=== PATIENT | male | born 1970 ===

== ENCOUNTER 2018-02-05 09:38 | Inpatient (IN) | payer OTHER ==
[2018-02-05] MEDS ORDERED: Sodium Chloride 0.9% 500 ML IV ONE ×2 (10:09→10:35)
--- NOTE | 2018-02-05 10:13 | C.PDOC ---
History Of Present Illness 47-year-old male presents to the ED for evaluation of right upper quadrant pain associated with nausea and vomiting that started 1 day ago. Denies fever, diarrhea, hematemesis, and any other associated symptoms. Time Seen by Provider: 02/05/18 09:58 Chief Complaint (Nursing): Abdominal Pain History Per: Patient History/Exam Limitations: no limitations Onset/Duration Of Symptoms: Days (x1) Current Symptoms Are (Timing): Still Present Location Of Pain/Discomfort: RUQ Radiation Of Pain To:: None Recent travel outside of the [place]: No Past Medical History Reviewed: Historical Data, Nursing Documentation, Vital Signs Vital Signs: Last Vital Signs Temp 97.6 F 02/05/18 09:40 Pulse 65 02/05/18 09:40 Resp 21 02/05/18 09:40 BP 159/91 H 02/05/18 09:40 Pulse Ox 100 02/05/18 09:40 - Medical History PMH: Asthma Surgical History: No Surg Hx Family History: States: Unknown Family Hx - Social History Hx Alcohol Use: Yes (WEEKEND) Hx Substance Use: No - Immunization History Hx Tetanus Toxoid Vaccination: No Hx Influenza Vaccination: No Hx Pneumococcal Vaccination: No Review Of Systems Except As Marked, All Systems Reviewed And Found Negative. Constitutional: Negative for: Fever Gastrointestinal: Positive for: Nausea, Vomiting, Abdominal Pain (RUQ.). Nega tive for: Diarrhea Physical Exam - Physical Exam Appears: Well, Non-toxic, No Acute Distress Skin: Normal Color, Warm, Dry Head: Atraumatic, Normacephalic Eye(s): bilateral: Normal Inspection Neck: Normal ROM, Supple Chest: Symmetrical, No Deformity Cardiovascular: Rhythm Regular, No Murmur Respiratory: Normal Breath Sounds, No Rales, No Rhonchi, No Wheezing Gastrointestinal/Abdominal: Normal Exam, Soft, Tenderness (diffuse right upper quadrant tenderness. ), No Mass, No Distention, No Guarding, No Rebound Neurological/Psych: Oriented x3, Normal Speech, Normal Cognition ED Course And Treatment - Laboratory Results Result Diagrams: 02/05/18 10:31 02/05/18 10:31 O2 Sat by Pulse Oximetry: 100 (RA) Pulse Ox Interpretation: Normal - CT Scan/US US ABD Other Rad Studies (CT/US): Read By Radiologist CT/US Interpretation: FINDINGS: LIVER: Measures 14.56 cm in length. Heterogeneous increased echogenicity of the liver parenchyma. No mass. No intrahepatic bile duct dilatation. GALLBLADDER: There are multiple gallstones seen. No definite ultrasound evidence of significant gallbladder wall thickenin g or pericholecystic fluid. COMMON BILE DUCT: Measures 3.2 mm. No stones. No dilatation. PANCREAS: Unremarkable as visualized. No mass. No ductal dilatation. RIGHT KIDNEY: Measures 10.7 x 5.1 x 4.9 cm in length. Normal echogenicity. No calculus, mass, or hydronephrosis. AORTA: No aneurysmal dilatation. IVC: Unremarkable. OTHER FINDINGS: None . IMPRESSION: Gallstones without definite ultrasound evidence of significant gallbladder wall thickening or pericholecystic fluid. Heterogeneous diffuse increased echogenicity of the liver suggestive of moderate fibrofatty infiltration. Medical Decision Making Medical Decision Making: Plan: -Blood sent. -Urinalysis. -US ABD limited. -Pepcid -Toradol -Zofran -US ABD -CXR -EKG Progress/Update: 1:18pm : Spoke with Dr. Gonzáles who will admit the patient, Zosyn IV. Disposition - Disposition Disposition: HOSPITALIZED Disposition Time: 13:28 Condition: GOOD - Clinical Impression Clinical Impression: Abdominal pain, Cholecystitis - Scribe Statement The provider has reviewed the documentation as recorded by the Scribe (Jennifer Kim) Provider Attestation: All medical record entries made by the Scribe were at my direction and personally dictated by me. I have reviewed the chart and agree that the record accurately reflects my personal performance of the history, physical exam, medical decision making, and the department course for this patient. I have also personally directed, reviewed, and agree with the discharge instructions and disposition. Decision To Admit - Pt Status Changed To: Hospital Disposition Of: Inpatient - Admit Certification Admit to Inpatient:: After my assessment, the patient will require hospitalization for at least two midnights. This is because of the severity of symptoms shown, intensity of services needed, and/or the medical risk in this patient being treated as an outpatient. - InPatient: Physician Admission Certification:: After my assessment, the patient will require hospitalization for at least two midnights. This is because of the severity of symptoms shown, intensity of services needed, and/or the medical risk in this patient being treated as an outpatient. - . Bed Request Type: Regular Admitting Physician: Jovi Gonzáles Patient Diagnosis: Abdominal pain, Cholecystitis
[2018-02-05 10:37] LABS: BASO # 0.1 K/uL (0.0-0.2); BASO % 0.6 % (0.0-2.0); EOS % 0.1 % (0.0-4.0); HEMOGLOBIN 15.2 g/dL (12.0-18.0); LYMPH # 0.8 K/uL (1.0-4.3); LYMPH % 6.6 % (20.0-40.0); MEAN CELL VOLUME 93.3 fL (80.0-94.0); MEAN CORPUSCULAR HEMOGLOBIN 32.1 pg (27.0-31.0); MEAN CORPUSCULAR HGB CONC 34.4 g/dL (33.0-37.0); MEAN PLATELET VOLUME 8.5 fL (7.2-11.7); MONO # 0.4 K/uL (0.0-0.8); MONO % 3.9 % (0.0-10.0); NEUT # 10.1 K/uL (1.8-7.0); NEUT % 88.8 % (50.0-75.0); PLATELET COUNT 319 K/uL (130-400); RBC 4.75 Mil/uL (4.40-5.90); WHITE BLOOD COUNT 11.4 K/uL (4.8-10.8)
[2018-02-05 10:41] LABS: SQUAMOUS EPITHIAL < 1 /hpf (0-5); URINE BILIRUBIN NEGATIVE (NEGATIVE); URINE BLOOD NEGATIVE (NEGATIVE); URINE CLARITY Hazy (Clear); URINE COLOR Yellow (YELLOW); URINE GLUCOSE (UA) NORMAL (Normal); URINE LEUKOCYTE ESTERASE NEG Leu/uL (Negative); URINE PROTEIN NEGATIVE (NEGATIVE); URINE UROBILINOGEN NORMAL mg/dL (0.2-1.0)
[2018-02-05 10:50] LABS: ALB/GLOB RATIO 1.4 (1.0-2.1); ALBUMIN 4.6 g/dL (3.5-5.0); ALT/SGPT 48 U/L (21-72); AST/SGOT 33 U/L (17-59); BLOOD UREA NITROGEN 13 mg/dL (9-20); CALCIUM 8.5 mg/dl (8.6-10.4); GFR NON-AFRICAN AMERICAN > 60; LIPASE 48 U/L (23-300)
[2018-02-05 11:34] LABS: BANDS 1 % (0-2); LYMPHOCYTE 6 % (20-40); MONOCYTE 3 % (0-10); NEUTROPHIL 89 % (50-75); REACTIVE LYMPHOCYTES 1 % (0-0); TOTAL CELLS COUNTED 100
[2018-02-05 11:35] LABS: ANISOCYTOSIS SLIGHT; PLATELET ESTIMATE NORMAL (NORMAL)
[2018-02-05 11:36] LABS: LARGE PLATELETS PRESENT; TOXIC GRANULATION PRESENT
--- NOTE | 2018-02-05 12:50 | US ---
Date of service: 02/05/2018 HISTORY: r/o cholecystitis COMPARISON: None. TECHNIQUE: Sonographic evaluation of the right upper quadrant of the abdomen. FINDINGS: LIVER: Measures 14.56 cm in length. Heterogeneous increased echogenicity of the liver parenchyma. No mass. No intrahepatic bile duct dilatation. GALLBLADDER: There are multiple gallstones seen. No definite ultrasound evidence of significant gallbladder wall thickening or pericholecystic fluid. COMMON BILE DUCT: Measures 3.2 mm. No stones. No dilatation. PANCREAS: Unremarkable as visualized. No mass. No ductal dilatation. RIGHT KIDNEY: Measures 10.7 x 5.1 x 4.9 cm in length. Normal echogenicity. No calculus, mass, or hydronephrosis. AORTA: No aneurysmal dilatation. IVC: Unremarkable. OTHER FINDINGS: None . IMPRESSION: Gallstones without definite ultrasound evidence of significant gallbladder wall thickening or pericholecystic fluid. Heterogeneous diffuse increased echogenicity of the liver suggestive of moderate fibrofatty infiltration.
[2018-02-05] MEDS ORDERED: Piperacillin/Tazobact 3.375 GM in Sodium Chloride 100 ML IVPB ONE (13:30)
[2018-02-05] MEDS ORDERED: Morphine 4 MG/ML VIAL ONE (13:33)
[2018-02-05] MEDS ORDERED: Piperacillin/Tazobact 3.375 gm 100 ML IVPB ONE (13:34)
[2018-02-05] MEDS ORDERED: HYDROmorphone 0.5 mg/0.5 ml ISec IVP PRN (14:10)
[2018-02-05] MEDS: Lactated Ringer's 1,000 ML IV SCH (15:04)
--- NOTE | 2018-02-05 15:28 | RAD ---
Date of service: 02/05/2018 PROCEDURE: CHEST RADIOGRAPH, 1 VIEW HISTORY: abd pain COMPARISON: None available. FINDINGS: LUNGS: Clear. PLEURA: No pneumothorax or pleural fluid seen. CARDIOVASCULAR: No aortic atherosclerotic calcification present. Normal. OSSEOUS STRUCTURES: No significant abnormalities. VISUALIZED UPPER ABDOMEN: Normal. OTHER FINDINGS: None. IMPRESSION: No active disease.
--- NOTE | 2018-02-05 16:22 | CP.PCM.HP ---
<Jason Brown - Last Filed: 02/05/18 16:19> History of Present Illness - History of Present Illness History of Present Illness: H&P for Dr. Gonzáles CC abdominal Pain X 1 day This is a 47M was a PMH of asthma who presents to the ED with one day of RUQ abdominal pain that was associated with nausea no vomiting. He reports this is the first time this has happened to him. He reports nothing makes it better and taking deep breaths makes it worse. He reports he is passing gas and moving mu wels normally. He denies any fevers or chills at home. He deneis any chest pain or SOB or any other concerning symptoms. In the ED had a US which was significant for GB stones, along with labs drawn in ED with a leukocytosis. PMH: Asthma PSH: Denies ALL: NKDA Social: Denies Vices Present on Admission - Present on Admission Any Indicators Present on Admission: No Review of Systems - Constitutional Constitutional: absent: Anorexia, Chills - EENT Eyes: absent: Blurred Vision, Change in Vision Ears: absent: Decreased Hearing, Tinnitus, Dizziness - Cardiovascular Cardiovascular: absent: Chest Pain, Dyspnea - Respiratory Respiratory: absent: Cough, Dyspnea - Gastrointestinal Gastrointestinal: Abdominal Pain, Nausea. absent: Belching, Bloating, Diarrhea, Vomiting - Musculoskeletal Musculoskeletal: absent: Arthralgias, Myalgias - Neurological Neurological: absent: Dizziness, Loss of Vision Past Patient History - Infectious Disease Hx of Infectious Diseases: None - Past Social History Smoking Status: Never Smoked - PULMONARY Hx Asthma: Yes - PSYCHIATRIC Hx Substance Use: No - SURGICAL HISTORY Hx Surgeries: No - ANESTHESIA Hx Anesthesia: No Meds Allergies/Adverse Reactions: Allergies Allergy/AdvReac Type Severity Reaction Status Date / Time No Known Allergies Allergy Unverified 02/05/18 09:39 Physical Exam - Head Exam Head Exam: ATRAUMATIC - Eye Exam Eye Exam: EOMI. absent: Scleral icterus - ENT Exam ENT Exam: Mucous Membranes Moist - Respiratory Exam Respiratory Exam: NORMAL BREATHING PATTERN - Cardiovascular Exam Cardiovascular Exam: +S1, +S2 - GI/Abdominal Exam GI & Abdominal Exam: Guarding, Soft, Tenderness. absent: Distended, Firm, Hernia, Rigid - Extremities Exam Extremities exam: Positive for: normal capillary refill, normal inspection - Neurological Exam Neurological exam: Alert, Oriented x3 - Psychiatric Exam Psychiatric exam: Normal Affect, Normal Mood - Skin Skin Exam: Dry, Intact Results - Vital Signs Recent Vital Signs: Last Vital Signs Temp 97.8 F 02/05/18 14:45 Pulse 82 02/05/18 14:45 Resp 20 02/05/18 14:45 BP 159/83 H 02/05/18 14:45 Pulse Ox 100 02/05/18 15:05 - Labs Result Diagrams: 02/05/18 10:31 02/05/18 10:31 Labs: Laboratory Results - last 24 hr 02/05/18 02/05/18 02/05/18 10:31 10:31 10:31 WBC 11.4 H RBC 4.75 Hgb 15.2 Hct 44.3 MCV 93.3 MCH 32.1 H MCHC 34.4 RDW 13.0 Plt Count 319 MPV 8.5 Neut % (Auto) 88.8 H Lymph % (Auto) 6.6 L [place] % (Auto) 3.9 Eos % (Auto) 0.1 Baso % (Auto) 0.6 Neut # (Auto) 10.1 H Lymph # (Auto) 0.8 L [place] # (Auto) 0.4 Eos # (Auto) 0.0 Baso # (Auto) 0.1 Neutrophils % (Manual) 89 H Band Neutrophils % 1 Lymphocytes % (Manual) 6 L Reactive Lymphs % 1 H Monocytes % (Manual) 3 Toxic Granulation Present Platelet Estimate Normal Large Platelets Present Anisocytosis (manual) Slight Sodium 133 Potassium 4.3 Chloride 95 L Carbon Dioxide 22 Anion Gap 19 BUN 13 Creatinine 0.7 L Est GFR ( Amer) > 60 Est GFR (Non-Af Amer) > 60 Random Glucose 126 H Calcium 8.5 L Total Bilirubin 0.6 AST 33 ALT 48 Alkaline Phosphatase 111 Total Protein 7.9 Albumin 4.6 Globulin 3.3 Albumin/Globulin Ratio 1.4 Lipase 48 Urine Color Yellow Urine Clarity Hazy Urine pH 6.0 Ur Specific [place] 1.023 Urine Protein Negative Urine Glucose (UA) Normal Urine Ketones Trace Urine Blood Negative Urine Nitrate Negative Urine Bilirubin Negative Urine Urobilinogen Normal Ur Leukocyte Esterase Neg Urine WBC (Auto) 1 Urine RBC (Auto) 1 Ur Squamous Epith Cells < 1 - Imaging and Cardiology US - abdomen Status: Image reviewed by me, Report reviewed by me Assessment & Plan - Assessment and Plan (Free Text) Assessment: 47M with acute cholecystitis Plan: EKG NPO IV ABX IV Fluids Plan for OR in AM D/W Dr. Nivia Brown PGY3 <Jovi Gonzáles - Last Filed: 02/05/18 22:27> Results - Vital Signs Recent Vital Signs: Last Vital Signs Temp 97.8 F 02/05/18 14:45 Pulse 82 02/05/18 14:45 Resp 20 02/05/18 14:45 BP 159/83 H 02/05/18 14:45 Pulse Ox 100 02/05/18 19:29 - Labs Result Diagrams: 02/05/18 10:31 02/05/18 10:31 Labs: Laboratory Results - last 24 hr 02/05/18 02/05/18 02/05/18 10:31 10:31 10:31 WBC 11.4 H RBC 4.75 Hgb 15.2 Hct 44.3 MCV 93.3 MCH 32.1 H MCHC 34.4 RDW 13.0 Plt Count 319 MPV 8.5 Neut % (Auto) 88.8 H Lymph % (Auto) 6.6 L [place] % (Auto) 3.9 Eos % (Auto) 0.1 Baso % (Auto) 0.6 Neut # (Auto) 10.1 H Lymph # (Auto) 0.8 L [place] # (Auto) 0.4 Eos # (Auto) 0.0 Baso # (Auto) 0.1 Neutrophils % (Manual) 89 H Band Neutrophils % 1 Lymphocytes % (Manual) 6 L Reactive Lymphs % 1 H Monocytes % (Manual) 3 Toxic Granulation Present Platelet Estimate Normal Large Platelets Present Anisocytosis (manual) Slight Sodium 133 Potassium 4.3 Chloride 95 L Carbon Dioxide 22 Anion Gap 19 BUN 13 Creatinine 0.7 L Est GFR ( Amer) > 60 Est GFR (Non-Af Amer) > 60 Random Glucose 126 H Calcium 8.5 L Total Bilirubin 0.6 AST 33 ALT 48 Alkaline Phosphatase 111 Total Protein 7.9 Albumin 4.6 Globulin 3.3 Albumin/Globulin Ratio 1.4 Lipase 48 Urine Color Yellow Urine Clarity Hazy Urine pH 6.0 Ur Specific [place] 1.023 Urine Protein Negative Urine Glucose (UA) Normal Urine Ketones Trace Urine Blood Negative Urine Nitrate Negative Urine Bilirubin Negative Urine Urobilinogen Normal Ur Leukocyte Esterase Neg Urine WBC (Auto) 1 Urine RBC (Auto) 1 Ur Squamous Epith Cells < 1 Attending/Attestation - Attestation I have personally seen and examined this patient.: Yes I have fully participated in the care of the patient.: Yes I have reviewed all pertinent clinical information: Yes Notes (Text): Pt was seen and examined at bedside Agree with above note and assessment Pt with RUQ pain and Nausea Abdomen: Soft, RUQ tenderness, ND Labs and Radiology reviewed Ass: Acute Cholecystitis with Cholelithiasis Plan: OR for Lap Cholecystectomy possible Open Consent IV antibiotics NPO, IVF c/w current mx Plan d.w pt in detail Risk and benefit explained in detail
[2018-02-05] MEDS: Piperacillin/Tazobact 3.375 GM in Sodium Chloride 100 ML IVPB SCH (21:34)
[2018-02-06] MEDS: Lactated Ringer's 1,000 ML IV SCH ×2 (00:06→21:31)
[2018-02-06] MEDS: Piperacillin/Tazobact 3.375 GM in Sodium Chloride 100 ML IVPB SCH ×4 (02:15→21:31)
[2018-02-06 08:39] LABS: INR 1.1; PROTHROMBIN TIME 12.2 SECONDS (9.7-12.2)
[2018-02-06 08:46] LABS: BASO # 0.1 K/uL (0.0-0.2); BASO % 0.7 % (0.0-2.0); EOS # 0.1 K/uL (0.0-0.7); HEMOGLOBIN 15.4 g/dL (12.0-18.0); LYMPH # 1.3 K/uL (1.0-4.3); LYMPH % 10.8 % (20.0-40.0); MEAN CELL VOLUME 93.2 fL (80.0-94.0); MEAN CORPUSCULAR HEMOGLOBIN 31.7 pg (27.0-31.0); MEAN PLATELET VOLUME 8.7 fL (7.2-11.7); MONO % 8.7 % (0.0-10.0); NEUT # 9.1 K/uL (1.8-7.0); NEUT % 78.8 % (50.0-75.0); RBC 4.87 Mil/uL (4.40-5.90); RED CELL DISTRIBUTION WIDTH 13.1 % (11.5-14.5); WHITE BLOOD COUNT 11.6 K/uL (4.8-10.8)
[2018-02-06 08:51] LABS: ALB/GLOB RATIO 1.3 (1.0-2.1); ALT/SGPT 37 U/L (21-72); AST/SGOT 26 U/L (17-59); BLOOD UREA NITROGEN 10 mg/dL (9-20); CALCIUM 8.7 mg/dl (8.6-10.4); GFR NON-AFRICAN AMERICAN > 60
[2018-02-06] MEDS ORDERED: Lidocaine/Epinephrine 1% 1:100000 10 ML IJ ONE (11:58)
[2018-02-06] MEDS ORDERED: Bupivacaine 0.25% 20 ML INJ IJ ONE ×2 (12:15→12:18)
[2018-02-06] MEDS ORDERED: Propofol 10 mg/ml Inj (20 ML) ONE (12:26)
[2018-02-06] MEDS ORDERED: Midazolam 2 MG/2 ML VIAL ONE (12:26)
[2018-02-06] MEDS ORDERED: ceFAZolin IV 1 gm in Dextrose 1 GM/50 ML BAG IVPB ONE (13:00)
[2018-02-06] MEDS ORDERED: Neostigmine Methylsulfate 3mg/3ml Syringe IV ONE (13:31)
[2018-02-06] MEDS ORDERED: Morphine 4 MG/ML VIAL ONE (13:52)
--- NOTE | 2018-02-06 14:21 | PCM.SURG1 ---
Surgeon's Initial Post Op Note - Surgeon's Notes Surgeon: Dr. Gonzáles Buyer: Gilma MATT, Dr. Conner PGY4 Type of Anesthesia: General Endo Pre-Operative Diagnosis: Acute Cholecystitis. Umbilical hernia Operative Findings: same Post-Operative Diagnosis: same Operation Performed: Robotic assisted Laparoscopic Cholecystectomy. Open Primary Umbilical hernia repair Specimen/Specimens Removed: Gallbladder. Hernia sac Estimated Blood Loss: EBL {In ML}: 20 Blood Products Given: N/A Drains Used: Rashawn Post-Op Condition: Good Date of Surgery/Procedure: 02/06/18 Time of Surgery/Procedure: 14:20
[2018-02-06] MEDS: HYDROmorphone 0.5 mg/0.5 ml ISec IVP PRN ×3 (14:57→21:30)
[2018-02-06 16:51] VITALS: RESP 20
--- NOTE | 2018-02-06 17:39 | CARD ---
APPROVED REPORT Date of service: 02/05/2018 EKG Measurement Heart [id number] <Conclusion> Normal sinus rhythm Normal ECG
[2018-02-06] MEDS: Oxycodone/Acetaminophen 5/325 mg Tab PO PRN (18:35)
[2018-02-07] MEDS: HYDROmorphone 0.5 mg/0.5 ml ISec IVP PRN (03:02)
[2018-02-07] MEDS: Piperacillin/Tazobact 3.375 GM in Sodium Chloride 100 ML IVPB SCH ×3 (03:06→14:02)
--- NOTE | 2018-02-07 03:57 | OP ---
PROCEDURE DATE: 02/06/2018 PREOPERATIVE DIAGNOSES: 1. Acute cholecystitis and cholelithiasis. 2. Abdominal pain. POSTOPERATIVE DIAGNOSES: 1. Acute on chronic phlegmonous cholecystitis. 2. Extensive pericholecystic and perihepatic fluid collections. 3. Umbilical hernia. 4. Morbid obesity. PROCEDURES PERFORMED: 1. Robotic cholecystectomy. 2. Robotic drainage of pericholecystic, perihepatic collections and hydrops of the gallbladder. 3. Umbilical hernial repair without mesh, primary closure. ANESTHESIA: General endotracheal tube anesthesia. ESTIMATED BLOOD LOSS: Around 20 mL. DRAINS: A 19-[place] Rashawn drain was placed. COMPLICATIONS: None. INTRAOPERATIVE FINDINGS: The patient had extensive phlegmonous acute on chronic cholecystitis with extremely thickened large gallbladder containing multiple hundreds of stones, and the patient had extensive fluid collection in the perihepatic, pericholecystic area, and the patient also had 1 x 1 cm umbilical hernia containing preperitoneal fat. DESCRIPTION OF PROCEDURE: On intraoperative steps, this is a 47-year-old male who was diagnosed with acute cholecystitis and cholelithiasis, and the patient was consented for robotic cholecystectomy possible open, brought to the OR, placed supine on operating table. After induction of the anesthesia, the abdomen was prepped and draped in usual sterile fashion. Supraumbilical transverse incision was made after incising skin, subcutaneous tissue, and the fascia. The robotic camera port was placed. Pneumo was created. Another three 8 mm port was placed in upper abdomen and robot was brought in. Camera arm as well as arm 1 and arm 2 was docked. The patient was found to have a large phlegmon of gallbladder with omentum, and first adhesiolysis was done. The gallbladder was aspirated. The pericholecystic fluid as well as perihepatic fluid that was also drained, and after proper drainage of the collections, the gallbladder was aspirated, and hydrops of the gallbladder was identified, and it was aspirated, and after that, the gallbladder was retracted cranially. Calot's triangle dissection was done. Cystic duct and cystic artery was identified, and it was clipped at three places and cut in between two clips in the gallbladder. Intraoperative Firefly was used, and the liver was identified. The common bile duct was not magnified, and a top-down approach was done. Critical view of the safety was also identified before clipping the cystic duct, and then the gallbladder was dissected free from the gallbladder fossa, taken in EndoCatch bag, taken out through the umbilical port site and sent off the table for the pathology. There was a proper hemostasis in each and every part of the procedure, and again, the suction irrigation on the right upper quadrant was done. The 19-[place] Rashawn drain was placed, and Rashawn drain was secured to the skin, and all the instruments were taken out. All the ports were taken out under vision. Now, the umbilical incision was extended in order to remove the large specimen, and the hernial defect was also dissected, and now the umbilical hernial repair was done with primary 0 Prolene interrupted sutures multiple, and all the wound was closed in a two layers; subcu with a 2-0 Vicryl and skin with a 4-0 Monocryl, and dry sterile dressing was applied. The patient tolerated the procedure well. Count of instrument and gauze was correct. There was no apparent complication. The patient was extubated in OR and sent to the postanesthesia care in stable condition. Jovi Gonzáles MD
[2018-02-07] MEDS: Oxycodone/Acetaminophen 5/325 mg Tab PO PRN ×3 (05:36→18:33)
[2018-02-07] MEDS ORDERED: Pneumococcal 23-Valent Vaccine IM ONE (10:00)
[2018-02-07] MEDS ORDERED: Influenza Vaccine 60 MCG/0.5 ML SYR (3 yr & up) IM ONE (10:00)
[2018-02-07 11:33] LABS: HEMOGLOBIN 13.7 g/dL (12.0-18.0); MEAN CELL VOLUME 94.6 fL (80.0-94.0); MEAN CORPUSCULAR HEMOGLOBIN 32.7 pg (27.0-31.0); MEAN CORPUSCULAR HGB CONC 34.6 g/dL (33.0-37.0); MEAN PLATELET VOLUME 8.9 fL (7.2-11.7); RBC 4.19 Mil/uL (4.40-5.90); RED CELL DISTRIBUTION WIDTH 13.6 % (11.5-14.5); WHITE BLOOD COUNT 9.4 K/uL (4.8-10.8)
[2018-02-07 12:06] LABS: ALB/GLOB RATIO 1.3 (1.0-2.1); ALBUMIN 3.6 g/dL (3.5-5.0); ALT/SGPT 46 U/L (21-72); AST/SGOT 50 U/L (17-59); BLOOD UREA NITROGEN 10 mg/dL (9-20); CALCIUM 8.4 mg/dl (8.6-10.4); GFR NON-AFRICAN AMERICAN > 60
[2018-02-07] MEDS ORDERED: Oxycodone/Acetaminophen 5/325 mg Tab PO STA (12:37)
--- NOTE | 2018-02-07 13:25 | CP.PCM.DIS ---
Provider - Provider Date of Admission: 02/05/18 13:25 Attending physician: Jovi Gonzáles MD Time Spent in preparation of Discharge (in minutes): 20 Diagnosis - Discharge Diagnosis (1) Cholecystitis Status: Acute Hospital Course - Lab Results Lab Results: Most Recent Lab Values WBC 9.4 K/uL (4.8-10.8) 02/07/18 10:02 RBC 4.19 Mil/uL (4.40-5.90) L 02/07/18 10:02 Hgb 13.7 g/dL (12.0-18.0) 02/07/18 10:02 Hct 39.6 % (35.0-51.0) 02/07/18 10:02 MCV 94.6 fL (80.0-94.0) H 02/07/18 10:02 MCH 32.7 pg (27.0-31.0) H 02/07/18 10:02 MCHC 34.6 g/dL (33.0-37.0) 02/07/18 10:02 RDW 13.6 % (11.5-14.5) 02/07/18 10:02 Plt Count 278 K/uL (130-400) 02/07/18 10:02 MPV 8.9 fL (7.2-11.7) 02/07/18 10:02 Neut % (Auto) 78.8 % (50.0-75.0) H 02/06/18 08:20 Lymph % (Auto) 10.8 % (20.0-40.0) L 02/06/18 08:20 [place] % (Auto) 8.7 % (0.0-10.0) 02/06/18 08:20 Eos % (Auto) 1.0 % (0.0-4.0) 02/06/18 08:20 Baso % (Auto) 0.7 % (0.0-2.0) 02/06/18 08:20 Neut # (Auto) 9.1 K/uL (1.8-7.0) H 02/06/18 08:20 Lymph # (Auto) 1.3 K/uL (1.0-4.3) 02/06/18 08:20 [place] # (Auto) 1.0 K/uL (0.0-0.8) H 02/06/18 08:20 Eos # (Auto) 0.1 K/uL (0.0-0.7) 02/06/18 08:20 Baso # (Auto) 0.1 K/uL (0.0-0.2) 02/06/18 08:20 Neutrophils % (Manual) 89 % (50-75) H 02/05/18 10:31 Band Neutrophils % 1 % (0-2) 02/05/18 10:31 Lymphocytes % (Manual) 6 % (20-40) L 02/05/18 10:31 Reactive Lymphs % 1 % (0-0) H 02/05/18 10:31 Monocytes % (Manual) 3 % (0-10) 02/05/18 10:31 Toxic Granulation Present 02/05/18 10:31 Platelet Estimate Normal (NORMAL) 02/05/18 10:31 Large Platelets Present 02/05/18 10:31 Anisocytosis (manual) Slight 02/05/18 10:31 PT 12.2 SECONDS (9.7-12.2) 02/06/18 08:20 INR 1.1 02/06/18 08:20 APTT 32 SECONDS (21-34) 02/06/18 08:20 Sodium 136 mmol/L (132-148) 02/07/18 10:02 Potassium 3.7 mmol/L (3.6-5.2) 02/07/18 10:02 Chloride 99 mmol/L (98-107) 02/07/18 10:02 Carbon Dioxide 33 mmol/L (22-30) H 02/07/18 10:02 Anion Gap 7 (10-20) L 02/07/18 10:02 BUN 10 mg/dL (9-20) 02/07/18 10:02 Creatinine 1.0 mg/dL (0.8-1.5) 02/07/18 10:02 Est GFR ( Amer) > 60 02/07/18 10:02 Est GFR (Non-Af Amer) > 60 02/07/18 10:02 Random Glucose 110 mg/dL (75-110) 02/07/18 10:02 Calcium 8.4 mg/dl (8.6-10.4) L 02/07/18 10:02 Phosphorus 2.9 mg/dL (2.5-4.5) 02/06/18 08:20 Magnesium 1.9 mg/dL (1.6-2.3) 02/06/18 08:20 Total Bilirubin 1.2 mg/dL (0.2-1.3) 02/07/18 10:02 AST 50 U/L (17-59) 02/07/18 10:02 ALT 46 U/L (21-72) 02/07/18 10:02 Alkaline Phosphatase 107 U/L (38-126) 02/07/18 10:02 Total Protein 6.6 g/dL (6.3-8.3) 02/07/18 10:02 Albumin 3.6 g/dL (3.5-5.0) 02/07/18 10:02 Globulin 2.9 gm/dL (2.2-3.9) 02/07/18 10:02 Albumin/Globulin Ratio 1.3 (1.0-2.1) 02/07/18 10:02 Lipase 48 U/L (23-300) 02/05/18 10:31 Urine Color Yellow (YELLOW) 02/05/18 10:31 Urine Clarity Hazy (Clear) 02/05/18 10:31 Urine pH 6.0 (5.0-8.0) 02/05/18 10:31 Ur Specific [place] 1.023 (1.003-1.030) 02/05/18 10:31 Urine Protein Negative mg/dL (NEGATIVE) 02/05/18 10:31 Urine Glucose (UA) Normal mg/dL (Normal) 02/05/18 10:31 Urine Ketones Trace mg/dL (NEGATIVE) 02/05/18 10:31 Urine Blood Negative (NEGATIVE) 02/05/18 10:31 Urine Nitrate Negative (NEGATIVE) 02/05/18 10:31 Urine Bilirubin Negative (NEGATIVE) 02/05/18 10:31 Urine Urobilinogen Normal mg/dL (0.2-1.0) 02/05/18 10:31 Ur Leukocyte Esterase Neg [place]/uL (Negative) 02/05/18 10:31 Urine WBC (Auto) 1 /hpf (0-5) 02/05/18 10:31 Urine RBC (Auto) 1 /hpf (0-3) 02/05/18 10:31 Ur Squamous Epith Cells < 1 /hpf (0-5) 02/05/18 10:31 - Hospital Course Hospital Course: 47 yo M admitted to the hospital on 02/05 with RUQ abdominal pain and found on U/S to have acute cholecystitis. Pt was admitted to the hospital and started on IV antibiotics and pain medications. He was taken to the operating room the following day for Robotic cholecystectomy and umbilical hernia repair. The pt did well post-operatively. On POD #1 pt was tolerating regular diet and ambulating. His pain was well controlled with PO medications. Abdominal drain was removed. Post-op instructions explained to patient and he was discharged home in stable condition Discharge Exam - Head Exam Head Exam: ATRAUMATIC - Eye Exam Eye Exam: Normal appearance - ENT Exam ENT Exam: Mucous Membranes Moist - Respiratory Exam Respiratory Exam: NORMAL BREATHING PATTERN. absent: Respiratory Distress - Cardiovascular Exam Cardiovascular Exam: REGULAR RHYTHM - GI/Abdominal Exam GI & Abdominal Exam: Soft, Tenderness (appropriately). absent: Distended, Firm, Guarding, Rebound, Rigid Additional comments: dressings c/d/i - Neurological Exam Neurological exam: Alert, Oriented x3 - Psychiatric Exam Psychiatric exam: Normal Affect, Normal Mood - Skin Skin Exam: Dry, Intact Discharge Plan - Discharge Medications Prescriptions: Docusate [Colace] 100 mg PO BID #50 cap oxyCODONE/Acetaminophen [Percocet 5/325 mg Tab] 1 tab PO Q4H PRN #20 tab PRN Reason: Pain, Moderate (4-7) - Follow Up Plan Condition: GOOD Disposition: HOME/ ROUTINE Instructions: Cholecystectomy, Laparoscopic Surgery, Docusate, Oxycodone and Acetaminophen, Cholecystitis (DC) Additional Instructions: Resume regular diet and light activities. No heavy lifting >10lbs for 6 weeks. You may remove dressings in 4 days and shower, no soaking/bath tub/swimming pool. Make an appointment to see Dr. Gonzáles in office in 1-2 weeks. Reanudar la dieta regular y las actividades ligeras. No levantar objetos pesados> 10 libras [place] 6 semanas. Puede quitar los apsitos en 4 brown y ducharse, sin remojo / baera / piscina. Kristina cullen ori para veronique al Dr. Gonzáles en el cargo en 1-2 semanas. Referrals: Jovi Gonzáles MD [Staff Provider] -
[2018-02-07 16:34] VITALS: BP 118/73; PULSE 74; TEMP 98.4; O2SAT 95
== END 2018-02-07 18:48 | disposition home or self-care (01) | DRG 263 ==
LOC: C.ER 09:38 → C.9E 13:25 → C.6T 13:49
PROVIDERS: ADMIT Surgery Surgical Critical Care; ATTEND Surgery Surgical Critical Care
PROC: 0WQF4ZZ Repair Abdominal Wall, Percutaneous Endoscopic Approach (ICD-10-PCS; 2018-02-06)
PROC: 8E0W4CZ Robotic Assisted Procedure of Trunk Region, Percutaneous Endoscopic Approach (ICD-10-PCS; 2018-02-06)
PROC: 8E0W4CZ Robotic Assisted Procedure of Trunk Region, Percutaneous Endoscopic Approach (ICD-10-PCS; 2018-02-06)
PROC: 0FT44ZZ Resection of Gallbladder, Percutaneous Endoscopic Approach (ICD-10-PCS; principal; 2018-02-06 11:00)
DX: K80.10 Calculus of gallbladder with chronic cholecystitis without obstruction (principal); K82.1 Hydrops of gallbladder; K42.9 Umbilical hernia without obstruction or gangrene; J45.909 Unspecified asthma, uncomplicated; E66.01 Morbid (severe) obesity due to excess calories